=== PATIENT | female | born 2000 | race Caucasian/White ===

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

== ENCOUNTER 2020-03-18 19:22 | Emergency (ER) | payer OTHER, MEDICAID, SELFPAY ==
[2020-03-18] VITALS (14 sets, daily range): BP systolic 126–137; BP diastolic 60–82; PULSE 107–127; RESP 12–47; TEMP 37.1; O2SAT 97–99; BMI 18.7
--- NOTE | 2020-03-18 19:32 | DI.RAD.S_ITS ---
PROCEDURE: XR CHEST 1V INDICATIONS: chest pain TECHNIQUE: One view of the chest was acquired. COMPARISON: None. FINDINGS: Surgical changes and devices: None. Lungs and pleura: Lungs are clear. No pleural effusions or pneumothorax. Mediastinum: Mediastinal contours appear normal. Heart size is normal. Bones and chest wall: No suspicious bony lesions. Overlying soft tissues appear unremarkable. IMPRESSION: No acute cardiopulmonary disease process. Dictated by: Magalys Garcia MD, PhD on 03/18/2020 at 20:28 Approved by: Magalys Garcia MD, PhD on 03/18/2020 at 20:29
[2020-03-18 19:48] LABS: Add Manual Diff / Slide Review NO; Basophils Absolute Auto 0 /uL (0-100); Basophils Percent Auto 0.4 % (0-2); Eosinophils Absolute Auto 300 /uL (0-450); Eosinophils Percent Auto 4.4 % (2-4); Hematocrit 35.1 % (36-46); Hemoglobin 11.4 g/dL (12.0-16.0); Lymphocytes Absolute Auto 2600 /uL (1100-4500); Lymphocytes Percent Auto 40.9 % (25-40); Mean Corpuscular HGB Conc 32.6 % (30-36); Mean Corpuscular Hemoglobin 25.4 PG (26-34); Mean Corpuscular Volume 77.7 fL (80-100); Monocytes Absolute Auto 600 /uL (0-900); Monocytes Percent Auto 8.8 % (3-14); Neutrophils Absolute Auto 2900 /uL (1500-7000); Neutrophils Percent Auto 45.5 % (50-75); Platelet Count 187 X10^3/uL (150-400); Red Blood Cell Count 4.51 X10^6/uL (4.0-5.2); Red Cell Distribution Width 13.1 % (11.6-14.8); White Blood Cell Count 6.4 X10^3/uL (4.5-11.0)
[2020-03-18 19:57] LABS: Prothrombin Time 11.9 SECONDS (10.1-12.7)
[2020-03-18 19:59] LABS: PTT Partial Thromboplastin Tim 33 SECONDS (26.4-36.2)
[2020-03-18 20:01] LABS: Alanine Aminotransferase 19 IU/L (<35); Albumin 3.3 g/dL (3.5-5.0); Albumin Globulin Ratio 1.3 (1.0-2.8); Alkaline Phosphatase 159 U/L (38-126); Aspartate Aminotransferase 24 IU/L (14-36); BUN Creatinine Ratio 38.7 (6-22); Bilirubin Total 0.3 mg/dL (0.2-1.3); Blood Urea Nitrogen 12 mg/dL (7-17); Carbon Dioxide 30 mmol/L (22-32); Chloride 110 mmol/L (98-107); Creatine Kinase 22 U/L (30-135); Estimated Glomerular Filt Rate > 60.0 mL/min (>60); Globulin 2.6 g/dL (1.7-4.1); Glucose 104 mg/dL (70-100); HEMOLYSIS 18 (0-50); Lipase 212 U/L (23-300); Sodium 141 mmol/L (137-145); Total Protein 5.9 g/dL (6.3-8.2)
[2020-03-18 20:13] LABS: Troponin I < 0.012 ng/mL (0.01-0.034)
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
[2020-03-18 20:43] LABS: TSH w/ Reflex to FT4 < 0.02 uIU/mL (0.47-4.68)
[2020-03-18] MEDS: SODIUM CHLORIDE 0.9% 1,000 ML 1000 ML IV ×2 (21:03→22:21)
[2020-03-18 21:21] LABS: D Dimer 200 ng/mL (<230)
[2020-03-18 21:23] LABS: Free T4, Direct Thyroxine 4.97 ng/dL (0.78-2.19)
--- NOTE | 2020-03-18 21:53 | PC.NURSE ---
Patient gave permission to updated mother in lobby.
--- NOTE | 2020-03-18 22:09 | PC.NURSE ---
Patient reports she feels much better after IV fluids.
[2020-03-18] MEDS: atenoloL 50 MG TABLET PO (23:40)
== END 2020-03-18 23:50 | disposition home or self-care (01) ==
PROVIDERS: Emergency Provider Emergency Medicine; Family Provider Physician Assistant; PCP Pediatrics
DX: E05.90 Thyrotoxicosis, unspecified without thyrotoxic crisis or storm (principal); R42 Dizziness and giddiness; R00.0 Tachycardia, unspecified
CPT/HCPCS: 36415; 71045; 80053; 82550; 83690; 84439; 84443; 84484; 85025; 85379; 85610; 85730; 93005; 96360; 96361; 99283; 99284

== ENCOUNTER → 2020-04-09 12:36 | Outpatient (CLI) | payer OTHER, MEDICAID, SELFPAY ==
[2020-04-09 13:25] LABS: Pregnancy Test Serum,Qual Negative (Negative)
== END ==
PROVIDERS: Family Provider Physician Assistant; PCP Pediatrics; Referring Provider Specialist; Visit Provider Specialist
DX: Z01.818 Encounter for other preprocedural examination (principal)
CPT/HCPCS: 36415; 84703

== ENCOUNTER → 2020-05-18 08:12 | Outpatient (CLI) | payer OTHER, MEDICAID, SELFPAY ==
--- NOTE | 2020-05-18 08:13 | DI.US.S_ITS ---
PROCEDURE: US PELVIC COMPLETE INDICATIONS: POSITIVE TESTS TECHNIQUE: Real-time scanning was performed of the pelvic organs, with image documentation. Additional endovaginal scanning was necessary due to incomplete visualization of the adnexal and endometrial structures by transabdominal scanning. COMPARISON: [facility], , PELVIC COMPLETE, 04/01/2018, 11:20. [facility], , PELVIC COMPLETE, 10/31/2019, 14:28. FINDINGS: Uterus: Uterus is normal in size at 4.2 x 2.3 x 3 cm. The endometrium measures 2 mm in combined thickness. No findings of an intrauterine can be seen. Ovaries: The right ovary measures 3 x 2 x 1.9 cm. The left ovary measures 3.1 x 2.2 x 1.9 cm and demonstrates a dominant follicle that measures up to 1.1 cm. More than 12 follicles can be seen involving each ovary. The ovaries otherwise have a normal sonographic appearance. No adnexal masses are seen. Other: No pathologic free abdominal or pelvic fluid. IMPRESSION: No findings of an intrauterine can be seen. Differential diagnosis includes a completed spontaneous miscarriage, an ectopic , and early normal . Close clinical followup, with serial beta-hCG and serial ultrasound are recommended, if clinically appropriate. More than 12 follicles can be seen involving each ovary, which is consistent with polycystic ovarian syndrome. Dictated by: Wes Persaud M.D. on 05/18/2020 at 9:29 Approved by: Wes Persaud M.D. on 05/18/2020 at 9:31
== END ==
PROVIDERS: Family Provider Physician Assistant; PCP Pediatrics; Referring Provider Family Medicine; Visit Provider Family Medicine
DX: Z34.81 Encounter for supervision of other normal pregnancy, first trimester (principal)
CPT/HCPCS: 76830; 76856

== ENCOUNTER → 2020-05-19 15:59 | Outpatient (CLI) | payer OTHER, MEDICAID, SELFPAY ==
[2020-05-19 16:27] LABS: Add Manual Diff / Slide Review NO; Appearance Urine UA CLEAR; Basophils Absolute Auto 100 /uL (0-100); Basophils Percent Auto 0.9 % (0-2); Bilirubin Urine UA NEGATIVE (NEGATIVE); Color Urine UA YELLOW; Eosinophils Absolute Auto 200 /uL (0-450); Eosinophils Percent Auto 2.3 % (2-4); Glucose Urine UA NEGATIVE (Negative); Hemoglobin 12.7 g/dL (12.0-16.0); Ketones Urine UA NEGATIVE (NEGATIVE); Leukocyte Esterase Urine UA NEGATIVE (NEGATIVE); Lymphocytes Absolute Auto 2000 /uL (1100-4500); Lymphocytes Percent Auto 30.5 % (25-40); Mean Corpuscular HGB Conc 32.5 % (30-36); Mean Corpuscular Hemoglobin 25.2 PG (26-34); Mean Corpuscular Volume 77.6 fL (80-100); Monocytes Absolute Auto 500 /uL (0-900); Monocytes Percent Auto 7.5 % (3-14); Neutrophils Absolute Auto 3900 /uL (1500-7000); Neutrophils Percent Auto 58.8 % (50-75); Nitrite Urine UA NEGATIVE (Negative); Occult Blood Urine UA NEGATIVE (Negative); Platelet Count 236 X10^3/uL (150-400); Protein Urine UA NEGATIVE (Negative); Red Blood Cell Count 5.03 X10^6/uL (4.0-5.2); Red Cell Distribution Width 12.9 % (11.6-14.8); Specific Gravity Urine UA 1.025 (1.000-1.035); Urobilinogen Urine UA 0.2 E.U./dL (0.2); White Blood Cell Count 6.6 X10^3/uL (4.5-11.0)
[2020-05-19 17:26] LABS: HCG Quantitative /Beta subunit < 2.4 mIU/mL
[2020-05-19 18:51] LABS: Hepatitis B Surface Antigen NEGATIVE s/c (NEGATIVE); Rubella Antibody IgG 35.8 IU/mL (>15)
[2020-05-19 19:21] LABS: Hep C Virus Ab w/Reflex Quant NEGATIVE s/c (NEGATIVE)
[2020-05-19 20:52] LABS: HIV 1 & 2 Ab/Ag 4th Gen Combo INCONCLUSIVE (NEGATIVE)
[2020-05-20 11:19] LABS: Varicella IgG Antibody 312 index (Immune >165)
[2020-05-23 06:17] LABS: RPR Screen Non Reactive (Non Reactive)
== END ==
PROVIDERS: Family Provider Physician Assistant; PCP Pediatrics; Referring Provider Family Medicine; Visit Provider Family Medicine
DX: Z34.81 Encounter for supervision of other normal pregnancy, first trimester (principal); Z3A.01 Less than 8 weeks gestation of pregnancy
CPT/HCPCS: 36415; 80055; 81003; 84702; 86787; 86803; 86850; 86900; 86901; 87086; 87389; 87535

== ENCOUNTER 2020-10-29 20:48 | Emergency (ER) | payer OTHER, MEDICAID, SELFPAY ==
[2020-10-29 20:58] VITALS: BP 152/68; PULSE 89; RESP 16; TEMP 36.8; O2SAT 98; BMI 25.8
[2020-10-29] MEDS: DOXYCYCLINE HYCLATE 100 MG TABLET PO (21:41)
[2020-10-29] MEDS: LIDO 1%/SOD BICARB 8.4% (10ML) 10 ML SYRINGE INJ (21:41)
[2020-10-29 22:20] VITALS: BP 127/59; PULSE 97; RESP 16; O2SAT 98
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
== END 2020-10-29 22:21 | disposition home or self-care (01) ==
PROVIDERS: Emergency Provider Emergency Medicine; Family Provider Physician Assistant; PCP Pediatrics
DX: L02.416 Cutaneous abscess of left lower limb (principal)
CPT/HCPCS: 10060; 87070; 87075; 87077; 87147; 87186; 87205; 99283

== ENCOUNTER → 2020-11-02 19:43 | Outpatient (CLI) | payer OTHER, MEDICAID, SELFPAY ==
[2020-11-02 20:23] LABS: COVID19 -Nasal RAPID Negative (Negative)
== END ==
PROVIDERS: Family Provider Physician Assistant; PCP Pediatrics; Visit Provider Physician Assistant
DX: Z20.822 Contact with and (suspected) exposure to COVID-19 (principal)
CPT/HCPCS: 87635

== ENCOUNTER → 2020-12-19 11:08 | Outpatient (CLI) | payer OTHER, MEDICAID, SELFPAY ==
[2020-12-19 12:03] LABS: COVID19 -Nasal RAPID Negative (Negative)
== END ==
PROVIDERS: Family Provider Physician Assistant; PCP Pediatrics; Referring Provider Physician Assistant; Visit Provider Physician Assistant
DX: Z20.822 Contact with and (suspected) exposure to COVID-19 (principal); R05.9 Cough, unspecified; R51.9 Headache, unspecified
CPT/HCPCS: 87635

== ENCOUNTER 2021-06-22 19:30 | Emergency (ER) | payer OTHER, MEDICAID, SELFPAY ==
--- NOTE | 2021-06-22 19:58 | DI.RAD.S_ITS ---
PROCEDURE: XR CHEST 1V INDICATIONS: chest pain TECHNIQUE: One view of the chest was acquired. COMPARISON: [facility], CR, XR CHEST 1V, 03/18/2020, 19:45. FINDINGS: Surgical changes and devices: None. Lungs and pleura: Lungs are clear. No pleural effusions or pneumothorax. Mediastinum: Mediastinal contours appear normal. Heart size is normal. Bones and chest wall: No suspicious bony lesions. Overlying soft tissues appear unremarkable. IMPRESSION: 1. No acute cardiopulmonary disease. Dictated by: Cayetano Lainez M.D. on 06/22/2021 at 20:38 Approved by: Cayetano Lainez M.D. on 06/22/2021 at 20:38
[2021-06-22 20:00] VITALS: BP 135/76; PULSE 113; RESP 18; TEMP 36.6; O2SAT 99; BMI 25.3
[2021-06-22 20:21] LABS: Add Manual Diff / Slide Review NO; Basophils Absolute Auto 100 /uL (0-100); Basophils Percent Auto 0.8 % (0-2); Eosinophils Absolute Auto 100 /uL (0-450); Eosinophils Percent Auto 0.6 % (2-4); Hematocrit 38.8 % (36-46); Hemoglobin 13.4 g/dL (12.0-16.0); Lymphocytes Absolute Auto 3300 /uL (1100-4500); Lymphocytes Percent Auto 29.9 % (25-40); Mean Corpuscular HGB Conc 34.5 % (30-36); Mean Corpuscular Hemoglobin 27.4 PG (26-34); Mean Corpuscular Volume 79.4 fL (80-100); Monocytes Absolute Auto 700 /uL (0-900); Monocytes Percent Auto 6.4 % (3-14); Neutrophils Absolute Auto 6800 /uL (1500-7000); Neutrophils Percent Auto 62.3 % (50-75); Platelet Count 268 X10^3/uL (150-400); Red Blood Cell Count 4.88 X10^6/uL (4.0-5.2); Red Cell Distribution Width 12.5 % (11.6-14.8); White Blood Cell Count 10.9 X10^3/uL (4.5-11.0)
[2021-06-22 20:30] LABS: Alanine Aminotransferase 19 IU/L (<35); Albumin 4.3 g/dL (3.5-5.0); Albumin Globulin Ratio 1.5 (1.0-2.8); Alkaline Phosphatase 87 U/L (38-126); Aspartate Aminotransferase 26 IU/L (14-36); BUN Creatinine Ratio 14.3 (6-22); Bilirubin Total 0.6 mg/dL (0.2-1.3); Blood Urea Nitrogen 7 mg/dL (7-17); Calcium 8.8 mg/dL (8.4-10.2); Carbon Dioxide 24 mmol/L (22-32); Chloride 111 mmol/L (98-107); Creatine Kinase 43 U/L (30-135); Estimated Glomerular Filt Rate > 60 mL/min (>60); Globulin 2.8 g/dL (1.7-4.1); Glucose 80 mg/dL (70-100); HEMOLYSIS < 15 (0-50); Lipase 74 U/L (23-300); Potassium 3.8 mmol/L (3.4-5.1); Sodium 143 mmol/L (137-145); Total Protein 7.1 g/dL (6.3-8.2)
[2021-06-22 20:41] LABS: Troponin I < 0.012 ng/mL (0.01-0.034)
[2021-06-22 21:24] LABS: Thyroid Stimulating Hormone < 0.015 uIU/mL (0.47-4.68)
[2021-06-22 21:59] VITALS: BP 126/67; PULSE 95; O2SAT 100
[2021-06-22 22:00] VITALS: BP 127/72; PULSE 99; O2SAT 99
[2021-06-22 22:21] LABS: Free T4, Direct Thyroxine 3.52 ng/dL (0.78-2.19)
[2021-06-22 22:29] LABS: NT-proBNP (BNP-Adult 18+) 92 pg/mL (<125)
[2021-06-22 22:30] VITALS: BP 104/60; PULSE 87; O2SAT 100
[2021-06-22 23:00] VITALS: BP 101/61; PULSE 81; O2SAT 100
[2021-06-22 23:30] VITALS: BP 106/55; PULSE 103; O2SAT 99
[2021-06-23] VITALS: BP 108/78; PULSE 88; O2SAT 99
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
[2021-06-23 00:30] VITALS: BP 115/65; PULSE 86; RESP 23; O2SAT 100
== END 2021-06-23 00:37 | disposition home or self-care (01) ==
PROVIDERS: Emergency Provider Emergency Medicine; Family Provider Physician Assistant; PCP Pediatrics
DX: E05.90 Thyrotoxicosis, unspecified without thyrotoxic crisis or storm (principal); R00.0 Tachycardia, unspecified; R07.9 Chest pain, unspecified; R06.02 Shortness of breath
CPT/HCPCS: 36415; 71045; 80053; 82550; 83690; 83735; 83880; 84439; 84443; 84481; 84484; 85025; 93005; 99284

== ENCOUNTER → 2021-09-29 14:51 | Outpatient (CLI) | payer OTHER, MEDICAID, SELFPAY ==
[2021-09-29 16:22] LABS: Alanine Aminotransferase 19 IU/L (<35); Albumin 4.3 g/dL (3.5-5.0); Albumin Globulin Ratio 1.4 (1.0-2.8); Alkaline Phosphatase 78 U/L (38-126); Aspartate Aminotransferase 22 IU/L (14-36); Bilirubin Total 0.6 mg/dL (0.2-1.3); Blood Urea Nitrogen 11 mg/dL (7-17); Calcium 9.6 mg/dL (8.4-10.2); Carbon Dioxide 25 mmol/L (22-32); Chloride 105 mmol/L (98-107); Estimated Glomerular Filt Rate > 60 mL/min (>60); Glucose 86 mg/dL (70-100); HEMOLYSIS < 15 (0-50); Potassium 4.9 mmol/L (3.4-5.1); Sodium 138 mmol/L (137-145); Total Protein 7.3 g/dL (6.3-8.2)
[2021-09-29 16:41] LABS: Free T3, Triiodothyronine Free 8.66 pg/mL (2.77-5.27); Free T4, Direct Thyroxine 2.87 ng/dL (0.78-2.19)
[2021-09-29 16:54] LABS: TSH w/ Reflex to FT4 < 0.02 uIU/mL (0.47-4.68)
== END ==
PROVIDERS: Family Provider Physician Assistant; PCP Family Medicine; Referring Provider Family Medicine; Visit Provider Family Medicine
DX: E05.90 Thyrotoxicosis, unspecified without thyrotoxic crisis or storm (principal)
CPT/HCPCS: 36415; 80053; 84439; 84443; 84481

== ENCOUNTER 2021-10-08 13:44 | Emergency (ER) | payer OTHER, MEDICAID, SELFPAY ==
[2021-10-08 14:12] VITALS: BP 113/80; PULSE 94; RESP 18; TEMP 37; O2SAT 98; BMI 25.8
--- NOTE | 2021-10-08 16:49 | PC.NURSE ---
Pt reports while eating a tater-tot she felt like part of a veneer came off but realized it was a molar in her upper left. Pt reports hx of hyperthyroidism and A fib diagnosed in 2019. Denies blood thinners. No bleeding in mouth noted.
[2021-10-08 17:58] VITALS: BP 115/72; PULSE 86; RESP 18; O2SAT 98
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
== END 2021-10-08 20:57 | disposition home or self-care (01) ==
PROVIDERS: Emergency Provider Emergency Medicine; Family Provider Physician Assistant; PCP Family Medicine
DX: K02.9 Dental caries, unspecified (principal)
CPT/HCPCS: 99281

== ENCOUNTER → 2021-10-12 16:14 | Outpatient (CLI) | payer OTHER, MEDICAID, SELFPAY | PROVIDERS: Family Provider Physician Assistant; PCP Family Medicine; Visit Provider Family Medicine | DX: Z30.09 Encounter for other general counseling and advice on contraception (principal) | CPT/HCPCS: 81025 ==

== ENCOUNTER → 2022-06-13 10:31 | Outpatient (CLI) | payer OTHER, MEDICAID, SELFPAY ==
[2022-06-13 17:07] LABS: Free T4, Direct Thyroxine 1.27 ng/dL (0.78-2.19)
[2022-06-13 17:21] LABS: TSH w/ Reflex to FT4 6.48 uIU/mL (0.47-4.68)
== END ==
PROVIDERS: Family Provider Physician Assistant; PCP Family Medicine; Referring Provider Family Medicine; Visit Provider Family Medicine
DX: E05.90 Thyrotoxicosis, unspecified without thyrotoxic crisis or storm (principal); F41.8 Other specified anxiety disorders
CPT/HCPCS: 36415; 84439; 84443; 84481

== ENCOUNTER → 2022-08-03 08:13 | Outpatient (CLI) | payer OTHER, MEDICAID, SELFPAY ==
[2022-08-03 09:58] LABS: BUN Creatinine Ratio 14.3 (6-22); Blood Urea Nitrogen 13 mg/dL (7-17); Calcium 9.3 mg/dL (8.4-10.2); Carbon Dioxide 26 mmol/L (22-32); Chloride 106 mmol/L (98-107); Estimated Glomerular Filt Rate > 60 mL/min (>60); Glucose 82 mg/dL (70-100); HEMOLYSIS < 15 (0-50); Potassium 4.3 mmol/L (3.4-5.1); Sodium 140 mmol/L (137-145)
[2022-08-03 10:43] LABS: Free T4, Direct Thyroxine 1.03 ng/dL (0.78-2.19)
== END ==
PROVIDERS: Family Provider Physician Assistant; PCP Family Medicine; Referring Provider Family Medicine; Visit Provider Family Medicine
DX: E03.9 Hypothyroidism, unspecified (principal)
CPT/HCPCS: 36415; 80048; 84439; 84443

== ENCOUNTER → 2023-09-18 09:20 | Outpatient (CLI) | payer OTHER, MEDICAID, SELFPAY ==
[2023-09-18 11:03] LABS: HCG Quantitative /Beta subunit < 2.39 mIU/mL
== END ==
PROVIDERS: Family Provider Physician Assistant; PCP Family Medicine; Referring Provider Obstetrics & Gynecology; Visit Provider Obstetrics & Gynecology
DX: N91.2 Amenorrhea, unspecified (principal)
CPT/HCPCS: 36415; 84702

== ENCOUNTER → 2023-10-01 14:43 | Outpatient (CLI) | payer OTHER, MEDICAID, SELFPAY ==
[2023-10-01 16:19] LABS: HCG Quantitative /Beta subunit < 2.39 mIU/mL
== END ==
PROVIDERS: Family Provider Physician Assistant; PCP Family Medicine; Referring Provider Obstetrics & Gynecology; Visit Provider Obstetrics & Gynecology
DX: N91.2 Amenorrhea, unspecified (principal)
CPT/HCPCS: 36415; 84702

== ENCOUNTER → 2023-12-11 08:22 | Outpatient (CLI) | payer OTHER, SELFPAY ==
--- NOTE | 2023-12-11 08:23 | DI.US.S_ITS ---
PROCEDURE: US PELVIC COMPLETE INDICATIONS: irregular periods TECHNIQUE: Real-time scanning was performed of the pelvic organs, with image documentation. Additional endovaginal scanning was necessary due to incomplete visualization of the adnexal and endometrial structures by transabdominal scanning. COMPARISON: [facility], , US PELVIC COMPLETE, 05/18/2020, 8:41. FINDINGS: Uterus: 7.9 x 3.3 x 3.3 cm. Endometrium measures 7 mm. Homogeneous echotexture. Small amount of free fluid is seen within the endocervix. This is nonspecific. Ovaries: Nonenlarged ovaries bilaterally, measuring 7 cc on the right and 6 cc on the left. Multiple follicles are seen bilaterally. No dominant cyst Other: No pathologic free abdominal or pelvic fluid. IMPRESSION: No significant sonographic abnormalities in the pelvis. Dictated by: Ulises Alston M.D. on 12/11/2023 at 13:36 Approved by: Ulises Alston M.D. on 12/11/2023 at 13:39
[2023-12-11 09:58] LABS: Add Manual Diff / Slide Review NO; Basophils Absolute Auto 100 /uL (0-100); Basophils Percent Auto 1.1 % (0-2); Eosinophils Absolute Auto 100 /uL (0-450); Eosinophils Percent Auto 1.5 % (2-4); Hemoglobin 13.6 g/dL (12.0-16.0); Lymphocytes Absolute Auto 2300 /uL (1100-4500); Lymphocytes Percent Auto 26.2 % (25-40); Mean Corpuscular Volume 85.3 fL (80-100); Monocytes Absolute Auto 500 /uL (0-900); Monocytes Percent Auto 5.3 % (3-14); Neutrophils Absolute Auto 5800 /uL (1500-7000); Neutrophils Percent Auto 65.9 % (50-75); Platelet Count 290 X10^3/uL (150-400); Red Blood Cell Count 4.69 X10^6/uL (4.0-5.2); Red Cell Distribution Width 13.1 % (11.6-14.8); White Blood Cell Count 8.8 X10^3/uL (4.5-11.0)
[2023-12-11 10:27] LABS: Free T3, Triiodothyronine Free 2.49 pg/mL (2.77-5.27); Free T4, Direct Thyroxine 0.87 ng/dL (0.78-2.19)
== END ==
PROVIDERS: Family Provider Physician Assistant; PCP Family Medicine; Referring Provider Obstetrics & Gynecology; Visit Provider Obstetrics & Gynecology
DX: L68.9 Hypertrichosis, unspecified (principal); E03.9 Hypothyroidism, unspecified; F41.8 Other specified anxiety disorders; Z87.42 Personal history of other diseases of the female genital tract
CPT/HCPCS: 36415; 76856; 84439; 84443; 84481; 85025

== ENCOUNTER → 2023-12-26 09:07 | Outpatient (CLI) | payer OTHER, MEDICAID, SELFPAY ==
[2023-12-26 10:00] LABS: Hemoglobin A1C% w Est Avg Glu 4.8 % (4.0-6.0)
[2023-12-26 10:25] LABS: Follicle Stimulating Hormone 3.87 mIU/mL; Luteinizing Hormone 3.13 mIU/mL
== END ==
PROVIDERS: Family Provider Physician Assistant; PCP Family Medicine; Referring Provider Obstetrics & Gynecology; Visit Provider Obstetrics & Gynecology
DX: N92.6 Irregular menstruation, unspecified (principal); E89.0 Postprocedural hypothyroidism
CPT/HCPCS: 36415; 82627; 83001; 83002; 83036; 83498; 84403

== ENCOUNTER → 2024-01-09 14:23 | Outpatient (CLI) | payer OTHER, MEDICAID, SELFPAY ==
[2024-01-09 15:13] LABS: Free T3, Triiodothyronine Free 3.12 pg/mL (2.77-5.27); Free T4, Direct Thyroxine 1.08 ng/dL (0.78-2.19)
[2024-01-09 15:26] LABS: TSH w/ Reflex to FT4 3.56 uIU/mL (0.47-4.68)
== END ==
PROVIDERS: Family Provider Physician Assistant; PCP Family Medicine; Referring Provider Family Medicine; Visit Provider Family Medicine
DX: E03.9 Hypothyroidism, unspecified (principal); R79.89 Other specified abnormal findings of blood chemistry
CPT/HCPCS: 36415; 84439; 84443; 84481

== ENCOUNTER 2024-02-15 16:54 | Emergency (ER) | payer MEDICAID, SELFPAY ==
[2024-02-15 17:36] VITALS: BP 134/65; PULSE 96; RESP 18; TEMP 37.3; O2SAT 95; BMI 32.4
== END 2024-02-15 21:07 | disposition left against medical advice (07) ==
PROVIDERS: Emergency Provider Emergency Medicine; Family Provider Physician Assistant; PCP Family Medicine
DX: B00.1 Herpesviral vesicular dermatitis (principal)
CPT/HCPCS: 99281

== ENCOUNTER 2024-04-01 19:11 | Emergency (ER) | payer OTHER, SELFPAY ==
[2024-04-01 19:21] VITALS: BP 126/80; PULSE 87; RESP 18; TEMP 37.1; O2SAT 94; BMI 29.7
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
[2024-04-01 23:00] VITALS: BP 111/72; PULSE 73; RESP 18; O2SAT 98
== END 2024-04-02 00:42 | disposition left against medical advice (07) ==
PROVIDERS: Emergency Provider Emergency Medicine; Family Provider Physician Assistant; PCP Family Medicine
DX: M79.672 Pain in left foot (principal); M79.671 Pain in right foot; Z87.820 Personal history of traumatic brain injury
CPT/HCPCS: 73630; 99281

== ENCOUNTER → 2024-07-02 13:15 | Outpatient (CLI) | payer OTHER, SELFPAY ==
[2024-07-02 15:46] LABS: HCG Quantitative /Beta subunit 80.28 mIU/mL
== END ==
PROVIDERS: Family Provider Physician Assistant; PCP Family Medicine; Referring Provider Obstetrics & Gynecology; Visit Provider Obstetrics & Gynecology
DX: N91.2 Amenorrhea, unspecified (principal)
CPT/HCPCS: 36415; 84702

== ENCOUNTER → 2024-07-04 12:16 | Outpatient (CLI) | payer OTHER, SELFPAY ==
[2024-07-04 13:43] LABS: HCG Quantitative /Beta subunit 218.12 mIU/mL
== END ==
PROVIDERS: Family Provider Physician Assistant; PCP Family Medicine; Referring Provider Obstetrics & Gynecology; Visit Provider Obstetrics & Gynecology
DX: N91.2 Amenorrhea, unspecified (principal)
CPT/HCPCS: 36415; 84702

== ENCOUNTER → 2024-07-18 08:57 | Outpatient (CLI) | payer OTHER, SELFPAY ==
[2024-07-18 09:42] LABS: Add Manual Diff / Slide Review NO; Basophils Absolute Auto 100 /uL (0-100); Eosinophils Absolute Auto 200 /uL (0-450); Hematocrit 41.3 % (36-46); Hemoglobin 13.8 g/dL (12.0-16.0); Lymphocytes Absolute Auto 1800 /uL (1100-4500); Lymphocytes Percent Auto 22.1 % (25-40); Mean Corpuscular HGB Conc 33.5 % (30-36); Mean Corpuscular Hemoglobin 28.7 PG (26-34); Mean Corpuscular Volume 85.8 fL (80-100); Monocytes Absolute Auto 500 /uL (0-900); Monocytes Percent Auto 6.4 % (3-14); Neutrophils Absolute Auto 5700 /uL (1500-7000); Neutrophils Percent Auto 68.5 % (50-75); Platelet Count 288 X10^3/uL (150-400); Red Blood Cell Count 4.81 X10^6/uL (4.0-5.2); Red Cell Distribution Width 13.4 % (11.6-14.8); White Blood Cell Count 8.3 X10^3/uL (4.5-11.0)
[2024-07-18 10:21] LABS: Free T4, Direct Thyroxine 0.59 ng/dL (0.78-2.19)
[2024-07-18 10:35] LABS: Thyroid Stimulating Hormone 11.8 uIU/mL (0.47-4.68)
[2024-07-18 10:37] LABS: Hepatitis B Surface Antigen NEGATIVE s/c (NEGATIVE); Rubella Antibody IgG 36.5 IU/mL (>15)
[2024-07-18 10:53] LABS: HIV 1 & 2 Ab/Ag 4th Gen Combo NEGATIVE (NEGATIVE); Hep C Virus Ab w/Reflex Quant NEGATIVE s/c (NEGATIVE)
[2024-07-19 04:38] LABS: RPR Screen Non Reactive (Non Reactive)
[2024-07-19 09:40] LABS: Varicella IgG Antibody Reactive (Non Reactive)
== END ==
PROVIDERS: Family Provider Physician Assistant; PCP Family Medicine; Referring Provider Obstetrics & Gynecology; Visit Provider Obstetrics & Gynecology
DX: O09.899 Supervision of other high risk pregnancies, unspecified trimester (principal)
CPT/HCPCS: 36415; 80055; 84439; 84443; 86787; 86803; 86850; 86900; 86901; 87389

== ENCOUNTER → 2024-08-19 09:26 | Outpatient (CLI) | payer OTHER, SELFPAY ==
[2024-08-19 10:50] LABS: Natera Collection Specimen Collected
[2024-08-19 11:01] LABS: Free T4, Direct Thyroxine 1.48 ng/dL (0.78-2.19)
== END ==
PROVIDERS: Family Provider Physician Assistant; PCP Family Medicine; Referring Provider Obstetrics & Gynecology; Visit Provider Obstetrics & Gynecology
DX: Z34.81 Encounter for supervision of other normal pregnancy, first trimester (principal); Z3A.10 10 weeks gestation of pregnancy; E03.9 Hypothyroidism, unspecified
CPT/HCPCS: 36415; 84439